=== PATIENT | female | born 1955 | race Caucasian/White ===

== ENCOUNTER 2019-03-12 14:58 | Emergency (ER) | payer OTHER ==
[~2019-03-12] VITALS: Ht 162.6 cm; Wt 97.5 kg
[2019-03-12] MEDS ORDERED: LIPITOR40 MG (15:41)
[2019-03-12] MEDS ORDERED: CARVEDILOL25 MG (15:41)
[2019-03-12] MEDS ORDERED: HYZAAR 100-251 EACH (15:42)
== END 2019-03-12 18:33 | disposition home or self-care (01) ==
LOC: ER 14:58
DX: R51 Headache (principal); M62.830 Muscle spasm of back; M54.2 Cervicalgia

== ENCOUNTER 2024-05-06 07:53 | Outpatient (CLI) | payer OTHER ==
[~2024-05-06 07:53] MED LIST: CARVEDILOL25 MG; HYZAAR 100-251 EACH; LIPITOR40 MG
[2024-05-06 08:59] LABS: PH,URINE 5.5 (5.0-8.0); URINE APPEARANCE Clear; URINE BILIRRUBIN Negative (NEGATIVE); URINE BLOOD Negative; URINE COLOR Yellow; URINE GLUCOSE Negative (NEGATIVE); URINE KETONE Negative (NEGATIVE); URINE LEUKOCYTE Negative; URINE NITRATE Negative; URINE PROTEIN Negative (NEGATIVE); URINE UROBILINOGEN 0.2 E.U./dl
[2024-05-06 09:01] LABS: HEMATOCRIT 36.2 % (36.0-45.00); HEMOGLOBIN 12.3 g/dL (12.0-15.00); MEAN CELL VOLUME 90.7 fL (80.00-100.00); MEAN CORPUSCULAR HEMOGLOBIN 30.9 pg (27.00-32.0); PLATELET COUNT 209 K/uL (150-450); RED BLOOD COUNT 3.99 M/uL (4.00-6.00); RED CELL DISTRIBUTION WIDTH 14.6 % (11.5-14.5)
[2024-05-06 09:01] LABS: URINE BACTERIA 49.1 uL (0.0-1933); URINE RBC 4.1 uL (0.0-20.8)
[2024-05-06 09:19] LABS: COL EPI 81 SECONDS (82-175)
[2024-05-06 09:35] LABS: INR 0.98; PARTIAL THROMBOPLASTIN TIME 22.2 SECONDS (22.0-34.0); PROTHROMBIN TIME 10.2 SECONDS (9.0-11.5)
[2024-05-06 09:58] LABS: ALBUMIN 3.3 gm/dL (3.4-5.0); BILIRUBIN TOTAL 0.37 mg/dL (0.3-1.2); CREATININE SERUM 1.05 mg/dL (0.55-1.02); GFR 51.66; GLOBULINA 3.2 G/DL (2.4-3.5); POTASSIUM 4.63 mEq/L (3.5-5.1); TOTAL PROTEIN 6.5 gm/dL (6.4-8.2)
== END 2024-05-06 07:55 | disposition home or self-care (01) ==
LOC: RAD 07:53
PROVIDERS: ATTEND Orthopaedic Surgery
DX: M21.161 Varus deformity, not elsewhere classified, right knee (principal); Z76.89 Persons encountering health services in other specified circumstances; I10 Essential (primary) hypertension; D64.9 Anemia, unspecified; E88.89 Other specified metabolic disorders; N39.0 Urinary tract infection, site not specified; Z22.322 Carrier or suspected carrier of Methicillin resistant Staphylococcus aureus; E11.9 Type 2 diabetes mellitus without complications

== ENCOUNTER 2024-05-15 12:42 | Outpatient (CLI) | payer OTHER | END 2024-05-15 12:44 | disposition home or self-care (01) | LOC: NUCLEAR 12:42 | PROVIDERS: ATTEND Orthopaedic Surgery | DX: M81.0 Age-related osteoporosis without current pathological fracture (principal) ==